=== PATIENT | male | born 1930 | race Caucasian/White ===

== ENCOUNTER 2018-06-27 09:17 | Outpatient (CLI) | payer MEDICARE ==
--- NOTE | 2018-06-27 14:36 | NM ---
BONE SCAN: HISTORY: Malignant neoplasm of prostate, prostate cancer 20 years ago with removal with now rising PSA levels. FINDINGS: There is an intense area of abnormal increased activity in the anterior left iliac bon. There is als o a fairly intense area of increased activity in what is probably the T10 vertebral body with some sm aller less intense foci within the thoracic spine and the lumbar spine posteriorly at approximately L 3 and L5. Additionally, there is some increased activity involving multiple joints including the AC joints, shoulder joints, wrist joints, knee joints, and ankle joints, evidence for degenerative park e. There is bilateral renal and bladder activity. 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 Multiple other smaller less intense foci within the thoracic and lumbar spine are nonspecific . Multiple areas of increased activity in numerous joints. For additional information, followup AP pelvis and thoracic spine plain film examination might be considered. POS: QAMAR
== END 2018-06-27 09:18 | disposition home or self-care (01) ==
LOC: NM 09:17
PROVIDERS: ATTEND Urology
DX: C61 Malignant neoplasm of prostate (principal)
CPT/HCPCS: 78306; A9503

== ENCOUNTER 2018-07-01 08:51 | Outpatient (CLI) | payer MEDICARE ==
--- NOTE | 2018-07-01 10:37 | RAD ---
2 VIEW PELVIS: Date: 07/01/18 INDICATION: Prostate cancer. FINDINGS: Evidence of prior pelvic surgery with numerous metallic clips about the pelvis bilaterally. There is osseous degenerative change. No acute fracture or dislocation. There is nonspecific increased density at the lateral aspect of the left iliac ala. 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 As necessary, continued imaging follow-up may be obtained. POS: QAMAR
--- NOTE | 2018-07-01 10:38 | RAD ---
THORACIC SPINE FRONTAL AND LATERAL IMAGIN07/01/2018 HISTORY: Prostate cancer. COMPARISON: None. FINDINGS: There is disk space narrowing and lateral osteophyte formation at multiple levels within the lower th oracic spine. Thoracic pedicles appear intact on frontal imaging. There is atherosclerotic calcific ation of the aortic arch. Of note, bone scan performed on 06/27/2018 demonstrates an area of increased radiotracer activity wit hin the T10 vertebral body and, potentially, the T7 vertebral body. Of note, at the T10 level, there is no obvious sclerotic lesion. There is also no evidence for fracture. IMPRESSION: No discrete sclerotic lesion, and no evidence for fracture. As there is no benign explanation for th e abnormal radiotracer activity at T10, metastatic disease is suspected. Cross-sectional imaging may be beneficial to evaluate for an underlying lesion, which could potentially be lytic in nature. Rec ommend MRI of the thoracic spine with and without contrast. POS: C
== END 2018-07-01 08:52 | disposition home or self-care (01) ==
LOC: RAD 08:51
PROVIDERS: ATTEND Urology
DX: C61 Malignant neoplasm of prostate (principal)
CPT/HCPCS: 72072; 72170